=== PATIENT | male | born 1985 | race Caucasian/White ===

== ENCOUNTER → 2016-09-04 | Outpatient (CLI) | payer OTHER ==
[2016-09-04 17:06] LABS: CHLORIDE,CL 106 mmol/L (98-110); SODIUM,NA 141 mmol/L (136-146)
--- NOTE | 2016-09-06 12:11 | CR ---
EXAM DATE: 09/04/16 PATIENT'S AGE: 30 Patient: VONNIE GREER Facility: [place], [place] Site . Site : 1985 Study: XRay Sinus [id number] 5:05:16 PM Ordering Physician: Sera Russ Final Report: HISTORY: Chronic sinusitis. Findings: Four views of the paranasal sinuses demonstrate the left frontal sinus is hypoplastic. The right frontal, ethmoid, maxillary and sphenoid sinuses are well aerated. No air-fluid levels are identified. Impression: No evidence of acute sinusitis. Dictated by Susan Harding MD @ Sep 05 2016 8:41PM (Electronic Signature) Report Signed by Proxy and Original Signed Document filed in the Medical Record. MTDD
== END ==
LOC: MW.CHIM 16:22
PROVIDERS: ATTEND Internal Medicine
DX: J32.9 Chronic sinusitis, unspecified (principal)
CPT/HCPCS: 36415; 70220; 70220-26; 80048; 85025

== ENCOUNTER 2016-10-23 23:16 | Observation (INO) | payer OTHER ==
[2016-10-23] MEDS ORDERED: Sodium Chloride 0.9% 1,000 ML IV SCH (23:45)
[2016-10-23] MEDS ORDERED: Ondansetron 4 MG/2 ML SDV IVPUSH ONE (23:48)
[2016-10-24 00:36] LABS: CHLORIDE,CL 105 mmol/L (98-110); SODIUM,NA 138 mmol/L (136-146)
[2016-10-24] MEDS ORDERED: Ketorolac 30 MG/ML SDV IVPUSH ONE (00:36)
--- NOTE | 2016-10-24 00:37 | EDM.PDOC ---
ED HPI GENERAL MEDICAL PROBLEM - General Stated Complaint: PT HAS FOOD POISON Time Seen by Provider: 10/23/16 23:30 Source of Information: Reports: Patient History Limitations: Reports: No Limitations - History of Present Illness INITIAL COMMENTS - FREE TEXT/NARRATIVE: HISTORY AND PHYSICAL: History of present illness: [30-year-old male with no significant past medical history now complaining of right lower quadrant abdominal pain with nausea and decreased appetite today. Patient does have a history of frequent nausea vomiting and crampy abdominal pain which spontaneously resolves and has never been diagnosed as any intra- abdominal pathology he denies fevers chills sweats or shaking chills and states that it does not really hurt when he moves. He does have a decreased appetite today.] Review of systems: As per history of present illness and below otherwise all systems reviewed and negative. Past medical history: As per history of present illness and as reviewed below otherwise noncontributory. Surgical history: As per history of present illness and as reviewed below otherwise noncontributory. Social history: No reported history of drug or alcohol abuse. Family history: As per history of present illness and as reviewed below otherwise noncontributory. Physical exam: HEENT: Atraumatic, normocephalic, pupils reactive, negative for conjunctival pallor or scleral icterus, mucous membranes moist, throat clear, neck supple, nontender, trachea midline. Lungs: Clear to auscultation, breath sounds equal bilaterally, chest nontender. Heart: S1S2, regular, negative for clicks, rubs, or JVD. Abdomen: Soft, nondistended, mild right lower quadrant abdominal tenderness no guarding or rebound positive bowel sounds. Negative for masses or hepatosplenomegaly. Negative for costovertebral tenderness. Pelvis: Stable nontender. Genitourinary: Deferred. Rectal: Deferred. Extremities: Atraumatic, negative for cords or calf pain. Neurovascular unremarkable. Neuro: Awake, alert, oriented. Cranial nerves II through XII unremarkable. Cerebellum unremarkable. Motor and sensory unremarkable throughout. Exam nonfocal. Diagnostics: [CT abdomen and pelvis as well as full labs pending] Therapeutics: [Zofran and Toradol given IV] Impression: [[place] pain] Plan: [Signs and symptoms consistent with possible early appendicitis however patient does have a history of recurrent abdominal pain with nausea and vomiting. He does not have peritoneal signs and is quite well-appearing with no fever. Full workup pending including labs and CT will follow clinically.] Labs with white blood cell count of 19. CT shows acute appendicitis with 14 mm appendix. No abscess or free air. No radiographic evidence of perforation. 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 Dr. Pate's where the history and findings and agrees observation admission to his service. He agrees with Mefoxin/IV fluids. Patient will be kept nothing by mouth. Vital signs stable Definitive disposition and diagnosis as appropriate pending reevaluation and review of above. abdomen Pain Score (Numeric/FACES): 6 - Related Data Allergies Allergy/AdvReac Type Severity Reaction Status Date / Time No Known Allergies Allergy Verified 10/23/16 23:26 Home Meds: Home Meds ALPRAZolam [Xanax] 1 tab PO BID 10/23/16 [History] Past Medical History HEENT History: Reports: None Cardiovascular History: Reports: None Respiratory History: Reports: None Gastrointestinal History: Reports: None Genitourinary History: Reports: None Musculoskeletal History: Reports: None Neurological History: Reports: None Psychiatric History: Reports: Anxiety, Depression Endocrine/Metabolic History: Reports: None Hematologic History: Reports: None Oncologic (Cancer) History: Reports: None Dermatologic History: Reports: None - Infectious Disease History Infectious Disease History: Reports: Chicken Pox - Past Surgical History HEENT Surgical History: Reports: Naso-Sinus Surgery Social & Family History - Family History Family Medical History: Noncontributory - Tobacco Use Smoking Status *Q: Never Smoker Second Hand Smoke Exposure: No - Caffeine Use Caffeine Use: Reports: Soda - Recreational Drug Use Recreational Drug Use: No ED ROS GENERAL - Review of Systems Review Of Systems: See Below (History of present illness) ED EXAM, GENERAL - Physical Exam Exam: See Below (History of present illness) Course - Vital Signs Last Recorded V/S: Last Vital Signs Temp 36.5 C 10/24/16 00:30 Pulse 78 10/24/16 00:30 Resp 16 10/24/16 00:30 BP 133/83 10/24/16 00:30 Pulse Ox 98 10/24/16 00:30 - Orders/Labs/Meds Orders: Active Orders 24 hr Category Date Time Status Admission Status [Patient Status] [ADT] Stat ADT 10/24/16 01:36 Ordered Nothing Per Oral Diet [DIET] Diet 10/24/16 Breakfast Ordered Abdomen Pelvis w Cont [CT] Stat Exams 10/23/16 23:50 Ordered Sodium Chloride 0.9% [Normal Saline] 1,000 ml Med 10/23/16 23:45 Active IV ASDIRECTED Sodium Chloride 0.9% [Normal Saline] 1,000 ml Med 10/24/16 01:39 Ordered IV STAT cefOXitin [Mefoxin] 1 gm Med 10/24/16 01:35 Ordered Sodium Chloride 0.9% [Normal Saline] 50 ml IV ONETIME Medication Orders Sodium Chloride (Normal Saline) 1,000 mls @ 999 mls/hr IV ASDIRECTED JACQUELIN Last Admin: 10/23/16 23:55 Dose: 999 mls/hr Cefoxitin Sodium 1 gm/ Sodium (Chloride) 50 mls @ 100 mls/hr IV ONETIME ONE Stop: 10/24/16 02:04 Sodium Chloride (Normal Saline) 1,000 mls @ 999 mls/hr IV STAT ONE Stop: 10/24/16 02:39 Labs: Laboratory Tests 10/23/16 10/23/16 Range/Units 23:25 23:25 WBC 19.36 H (4.0-11.0) K/uL RBC 5.14 (4.50-5.90) M/uL Hgb 15.5 (13.0-17.0) g/dL Hct 43.9 (38.0-50.0) % MCV 85.4 (80.0-98.0) fL MCH 30.2 (27.0-32.0) pg MCHC 35.3 (31.0-37.0) g/dL RDW Std Deviation 41.4 (28.0-62.0) fl RDW Coeff of Gisele 13 (11.0-15.0) % Plt Count 312 (150-400) K/uL MPV 9.70 (7.40-12.00) fL Neut % (Auto) 88.8 H (48.0-80.0) % Lymph % (Auto) 7.5 L (16.0-40.0) % [place] % (Auto) 3.4 (0.0-15.0) % Eos % (Auto) 0.1 (0.0-7.0) % Baso % (Auto) 0.2 (0.0-1.5) % Neut # (Auto) 17.2 H (1.4-5.7) K/uL Lymph # (Auto) 1.5 (0.6-2.4) K/uL [place] # (Auto) 0.7 (0.0-0.8) K/uL Eos # (Auto) 0.0 (0.0-0.7) K/uL Baso # (Auto) 0.0 (0.0-0.1) K/uL Nucleated RBC % 0.0 /100WBC Nucleated RBCs # 0 K/uL Sodium 138 (136-146) mmol/L Potassium 4.0 (3.5-5.1) mmol/L Chloride 105 (98-110) mmol/L Carbon Dioxide 21 (21-31) mmol/L BUN 15 (6.0-23.0) mg/dL Creatinine 0.8 (0.6-1.5) mg/dL Est Cr Clr Drug Dosing 162.75 mL/min Estimated GFR (MDRD) > 60.0 ml/min Glucose 126 H (60-110) mg/dL Calcium 9.4 (8.8-10.8) mg/dL Total Bilirubin 1.7 H (0.1-1.5) mg/dL AST 17 (5-40) IU/L ALT 20 (8-54) IU/L Alkaline Phosphatase 101 (40-150) Total Protein 7.7 (6.0-8.0) g/dL Albumin 4.5 (3.5-5.0) g/dL Globulin 3.2 (2.0-3.5) g/dL Albumin/Globulin Ratio 1.4 (1.3-2.8) Lipase 14 (7-80) U/L Meds: Medications Generic Name Dose Route Start Last Admin Trade Name Freq PRN Reason Stop Dose Admin Sodium Chloride 1,000 mls @ 999 mls/hr 10/23/16 23:45 10/23/16 23:55 Normal Saline IV 999 mls/hr ASDIRECTED JACQUELIN Administration Cefoxitin Sodium 1 gm/ Sodium 50 mls @ 100 mls/hr 10/24/16 01:35 Chloride IV 10/24/16 02:04 ONETIME ONE Sodium Chloride 1,000 mls @ 999 mls/hr 10/24/16 01:39 Normal Saline IV 10/24/16 02:39 STAT ONE Discontinued Medications Generic Name Dose Route Start Last Admin Trade Name Christoph PRN Reason Stop Dose Admin Iopamidol 100 ml 10/24/16 01:08 10/24/16 01:09 Isovue Multipack-370 (76%) IVPUSH 10/24/16 01:09 100 ml ONETIME STA Administration Ketorolac Tromethamine 30 mg 10/24/16 00:36 10/24/16 00:40 Toradol IVPUSH 10/24/16 00:37 30 mg ONETIME ONE Administration Ondansetron HCl 4 mg 10/23/16 23:48 10/23/16 23:55 Zofran IVPUSH 10/23/16 23:49 4 mg ONETIME ONE Administration Ondansetron HCl 4 mg 10/24/16 00:43 10/24/16 01:09 Zofran IVPUSH 10/24/16 00:44 4 mg ONETIME ONE Administration Departure - Departure Time of Disposition: 01:35 Disposition: Refer to Observation Condition: fair Clinical Impression: Acute appendicitis, Abdominal pain, Leukocytosis - Discharge Information - My Orders Last 24 Hours: My Active Orders 10/23/16 23:45 Sodium Chloride 0.9% [Normal Saline] 1,000 ml IV ASDIRECTED 10/23/16 23:50 Abdomen Pelvis w Cont [CT] Stat 10/24/16 01:35 cefOXitin [Mefoxin] 1 gm Sodium Chloride 0.9% [Normal Saline] 50 ml IV ONETIME 10/24/16 01:36 Admission Status [Patient Status] [ADT] Stat 10/24/16 01:39 Sodium Chloride 0.9% [Normal Saline] 1,000 ml IV STAT 10/24/16 Breakfast Nothing Per Oral Diet [DIET] - Assessment/Plan Last 24 Hours: My Active Orders 10/23/16 23:45 Sodium Chloride 0.9% [Normal Saline] 1,000 ml IV ASDIRECTED 10/23/16 23:50 Abdomen Pelvis w Cont [CT] Stat 10/24/16 01:35 cefOXitin [Mefoxin] 1 gm Sodium Chloride 0.9% [Normal Saline] 50 ml IV ONETIME 10/24/16 01:36 Admission Status [Patient Status] [ADT] Stat 10/24/16 01:39 Sodium Chloride 0.9% [Normal Saline] 1,000 ml IV STAT 10/24/16 Breakfast Nothing Per Oral Diet [DIET]
[2016-10-24] MEDS ORDERED: Ondansetron 4 MG/2 ML SDV IVPUSH ONE (00:43)
[2016-10-24] MEDS ORDERED: Iopamidol 755 MG/ML 500 ML Multipack Bottle IVPUSH STA (01:08)
[2016-10-24] MEDS ORDERED: Sodium Chloride 0.9% 1,000 ML IV ONE (01:39)
[2016-10-24] MEDS ORDERED: HYDROmorphone 2 MG/ML Syringe IVPUSH PRN (01:40)
[2016-10-24] MEDS ORDERED: HYDROmorphone 1 MG/ML Syringe IVPUSH ONE (01:52)
[2016-10-24] MEDS ORDERED: HYDROmorphone 1 MG/ML Syringe ONE (01:58)
[2016-10-24] MEDS ORDERED: cefOXitin 1 GM in Premix Bag 1 BAG IV ONE (06:25)
[2016-10-24] MEDS ORDERED: Morphine 2 MG/ML Syringe IVPUSH PRN (06:26)
[2016-10-24] MEDS ORDERED: Lactated Ringers 1,000 ML IV SCH (06:30)
--- NOTE | 2016-10-24 08:08 | PCM.HP ---
H&P History of Present Illness - General Date of Service: 10/24/16 Source of Information: Patient History Limitations: Reports: No Limitations - History of Present Illness Initial Comments - Free Text/Narative: Patient is a 30-year-old gentleman, who presented to the emergency room early this morning, complaining of right lower quadrant pain. He says this has been going on intermittently for the last year. He has had at least one prior emergency room visit for this. On his most recent visit he was found have an elevated white count. A CT scan shows acute appendicitis without perforation and he was thus admitted. Onset of Symptoms: Reports: Gradual Duration of Symptoms: Reports: Day(s):, Getting Worse, Recurring Location: Reports: Abdomen Quality: Reports: Ache, Pressure Severity: Moderate Improves with: Reports: Rest Worsens with: Reports: Movement Context: Reports: Sick Contact Associated Symptoms: Reports: Nausea/Vomiting abdomen Pain Score (Numeric/FACES): 3 - Related Data Allergies/Adverse Reactions: Allergies Allergy/AdvReac Type Severity Reaction Status Date / Time No Known Allergies Allergy Verified 10/23/16 23:26 Home Medications: Home Meds ALPRAZolam [Xanax] 0.25 mg PO BID 10/23/16 [History] Past Medical History HEENT History: Reports: None Cardiovascular History: Reports: None Respiratory History: Reports: None Gastrointestinal History: Reports: None Genitourinary History: Reports: None Musculoskeletal History: Reports: None Neurological History: Reports: None Psychiatric History: Reports: Anxiety, Depression Endocrine/Metabolic History: Reports: None Hematologic History: Reports: None Oncologic (Cancer) History: Reports: None Dermatologic History: Reports: None - Infectious Disease History Infectious Disease History: Reports: Chicken Pox - Past Surgical History HEENT Surgical History: Reports: Naso-Sinus Surgery, Tonsillectomy Social & Family History - Family History Family Medical History: Noncontributory - Tobacco Use Smoking Status *Q: Never Smoker Second Hand Smoke Exposure: No - Caffeine Use Caffeine Use: Reports: Coffee - Recreational Drug Use Recreational Drug Use: No H&P Review of Systems - Review of Systems: Review Of Systems: See Below General: Denies: Fever, Chills HEENT: Reports: No Symptoms Pulmonary: Denies: Shortness of Breath, Wheezing Cardiovascular: Denies: Chest Pain, Palpitations Gastrointestinal: Reports: Abdominal Pain (RLQ), Anorexia, Nausea, Vomiting Genitourinary: Denies: Dysuria, Frequency, Burning, Pain, Urgency Musculoskeletal: Reports: No Symptoms Skin: Reports: No Symptoms Psychiatric: Reports: No Symptoms Neurological: Reports: No Symptoms Hematologic/Lymphatic: Reports: No Symptoms Immunologic: Reports: No Symptoms Exam - Exam Exam: See Below - Vital Signs Vital Signs: Last Vital Signs Temp 99 F 10/24/16 06:00 Pulse 88 10/24/16 02:30 Resp 20 10/24/16 02:30 BP 142/75 H 10/24/16 02:30 Pulse Ox 100 10/24/16 02:30 Weight: 222 lb 7.143 oz - Exam General: Alert, Oriented, Cooperative, Mild Distress HEENT: Conjunctiva Clear, EACs Clear, EOMI, Pupils Equal, Pupils Reactive. No: Scleral Icterus Neck: Supple Lungs: Clear to Auscultation, Normal Respiratory Effort Cardiovascular: Regular Rate, Regular Rhythm, Normal S1, Normal S2 Abdomen: Soft, Rebound, Tenderness (RLQ), Hypoactive Bowel Sounds, McBurney's Sign. No: Distention, Guarding, Rigidity (Male) Exam: No Hernia, Normal Inspection Rectal (Males) Exam: Deferred Back Exam: Normal Inspection, Full Range of Motion Extremities: Normal Inspection, Normal Pulses Skin: Warm, Dry, Intact Neurological: Cranial Nerves Intact Neuro Extensive - Mental Status: Alert, Oriented x3, Normal Mood/Affect Psychiatric: Alert, Normal Affect, Normal Mood - Patient Data Result Diagrams: 10/23/16 23:25 10/23/16 23:25 *Q Meaningful Use (ADM) - VTE *Q VTE Criteria *Q: - Stroke *Q Stroke Criteria *Q: - AMI *Q AMI Criteria *Q: - Problem List (1) Acute appendicitis SNOMED Code(s): 56553853 ICD Code: K35.80 - UNSPECIFIED ACUTE APPENDICITIS Status: Acute Priority : High Current Visit: Yes Qualifiers: Acute appendicitis type: with localized peritonitis Qualified Code(s): K35.3 - Acute appendicitis with localized peritonitis Problem List Initiated/Reviewed/Updated: Yes Orders Last 24hrs: Active Orders 24 hr Category Date Time Status Lactated Ringers [Ringers, Lactated] 1,000 ml Med 10/24/16 06:30 Active IV ASDIRECTED Morphine Med 10/24/16 06:26 Active 1 - 2 mg IVPUSH Q1H PRN Medication Orders Sodium Chloride (Normal Saline) 1,000 mls @ 999 mls/hr IV ASDIRECTED [facility] Last Admin: 10/23/16 23:55 Dose: 999 mls/hr Lactated Ringer's (Ringers, Lactated) 1,000 mls @ 125 mls/hr IV ASDIRECTED [facility] Last Admin: 10/24/16 06:32 Dose: 125 mls/hr Morphine Sulfate (Morphine) 1 - 2 mg IVPUSH Q1H PRN PRN Reason: Pain Assessment/Plan Comment:: Laparoscopic appendectomy, possible open appendectomy. Both operative procedures, along with the risks, including, but not limited to, bleeding, infection, pneumonia, deep venous thrombosis, pulmonary emboli, myocardial infarction, and adjacent organ injury have been reviewed with the patient who voices understanding, offers no questions and agrees to proceed.
--- NOTE | 2016-10-24 08:51 | PCM.PREANE ---
Preanesthetic Assessment - Procedure Proposed Procedure: Laparoscopic appendectomy - Anesthesia/Transfusion/Family Hx Anesthesia History: Prior Anesthesia Without Reaction Type of Anesthesia Reaction: Unknown Transfusion History: No Prior Transfusion(s) Intubation History: Unknown - Review of Systems General: Other (abdominal pain due to appendix ) Pulmonary: No Symptoms Cardiovascular: No Symptoms Gastrointestinal: No symptoms Neurological: No Symptoms Other: Reports: Depression, Anxiety - Physical Assessment NPO Status Date: 10/23/16 NPO Status Time: 23:55 O2 Sat by Pulse Oximetry: 100 Respiratory Rate: 18 Vital Signs: Last Vital Signs Temp 99.2 F 10/24/16 08:08 Pulse 82 10/24/16 08:08 Resp 18 10/24/16 08:08 BP 136/71 10/24/16 08:08 Pulse Ox 100 10/24/16 08:08 Height: 6 ft 3.98 in Weight: 222 lb 7.143 oz ASA Class: 2E Mental Status: Alert & Oriented x3 Airway Class: Mallampati = 1 Dentition: Reports: Normal Dentition Thyro-Mental Finger Breadths: 3 Mouth Opening Finger Breadths: 3 ROM/Head Extension: Full Lungs: Clear to auscultation, Normal respiratory effort Cardiovascular: Regular Rate, Regular Rhythm, No Murmurs - Lab Values: Laboratory Last Values WBC 19.36 K/uL (4.0-11.0) H 10/23/16 23:25 RBC 5.14 M/uL (4.50-5.90) 10/23/16 23:25 Hgb 15.5 g/dL (13.0-17.0) 10/23/16 23:25 Hct 43.9 % (38.0-50.0) 10/23/16 23:25 MCV 85.4 fL (80.0-98.0) 10/23/16 23:25 MCH 30.2 pg (27.0-32.0) 10/23/16 23:25 MCHC 35.3 g/dL (31.0-37.0) 10/23/16 23:25 RDW Std Deviation 41.4 fl (28.0-62.0) 10/23/16 23:25 RDW Coeff of Gisele 13 % (11.0-15.0) 10/23/16 23:25 Plt Count 312 K/uL (150-400) 10/23/16 23:25 MPV 9.70 fL (7.40-12.00) 10/23/16 23:25 Neut % (Auto) 88.8 % (48.0-80.0) H 10/23/16 23:25 Lymph % (Auto) 7.5 % (16.0-40.0) L 10/23/16 23:25 [place] % (Auto) 3.4 % (0.0-15.0) 10/23/16 23:25 Eos % (Auto) 0.1 % (0.0-7.0) 10/23/16 23:25 Baso % (Auto) 0.2 % (0.0-1.5) 10/23/16: Neut # (Auto) 17.2 K/uL (1.4-5.7) H 10/23/16 23:25 Lymph # (Auto) 1.5 K/uL (0.6-2.4) 10/23/16:25 [place] # (Auto) 0.7 K/uL (0.0-0.8) 10/23/16 23:25 Eos # (Auto) 0.0 K/uL (0.0-0.7) 10/23/16 23:25 Baso # (Auto) 0.0 K/uL (0.0-0.1) 10/23/16: Nucleated RBC % 0.0 /100WBC 10/23/16:25 Nucleated RBCs # 0 K/uL 10/23/16 23:25 Sodium 138 mmol/L (136-146) 10/23/16 23:25 Potassium 4.0 mmol/L (3.5-5.1) 10/23/16 23:25 Chloride 105 mmol/L (98-110) 10/23/16 23:25 Carbon Dioxide 21 mmol/L (21-31) 10/23/16:25 BUN 15 mg/dL (6.0-23.0) 10/23/16:25 Creatinine 0.8 mg/dL (0.6-1.5) 10/23/16 23:25 Est Cr Clr Drug Dosing 162.75 mL/min 10/23/16 23:25 Estimated GFR (MDRD) > 60.0 ml/min 10/23/16 23:25 Glucose 126 mg/dL (60-110) H 10/23/16 23:25 Calcium 9.4 mg/dL (8.8-10.8) 10/23/16 23:25 Total Bilirubin 1.7 mg/dL (0.1-1.5) H 10/23/16 23:25 AST 17 IU/L (5-40) 10/23/16 23:25 ALT 20 IU/L (8-54) 10/23/16 23:25 Alkaline Phosphatase 101 (40-150) 10/23/16 23:25 Total Protein 7.7 g/dL (6.0-8.0) 10/23/16 23:25 Albumin 4.5 g/dL (3.5-5.0) 10/23/16 23:25 Globulin 3.2 g/dL (2.0-3.5) 10/23/16 23:25 Albumin/Globulin Ratio 1.4 (1.3-2.8) 10/23/16 23:25 Lipase 14 U/L (7-80) 10/23/16 23:25 - Allergies Allergies/Adverse Reactions: Allergies Allergy/AdvReac Type Severity Reaction Status Date / Time No Known Allergies Allergy Verified 10/23/16 23:26 - Blood Blood Available: No Product(s) Available: None - Anesthesia Plan Pre-Op Medication Ordered: None - Acknowledgements Anesthesia Type Planned: General Anesthesia (OET) Pt an Appropriate Candidate for the Planned Anesthesia: Yes Alternatives and Risks of Anesthesia Discussed w Pt/Guardian: Yes Pt/Guardian Understands and Agrees with Anesthesia Plan: Yes PreAnesthesia Questionnaire HEENT History: Reports: None Cardiovascular History: Reports: None Respiratory History: Reports: None Gastrointestinal History: Reports: None Genitourinary History: Reports: None Musculoskeletal History: Reports: None Neurological History: Reports: None Psychiatric History: Reports: Anxiety, Depression Endocrine/Metabolic History: Reports: None Hematologic History: Reports: None Oncologic (Cancer) History: Reports: None Dermatologic History: Reports: None - Infectious Disease History Infectious Disease History: Reports: Chicken Pox - Past Surgical History HEENT Surgical History: Reports: Naso-Sinus Surgery, Tonsillectomy - SUBSTANCE USE Smoking Status *Q: Never Smoker Second Hand Smoke Exposure: No Recreational Drug Use History: No - HOME MEDS Home Medications: Home Meds ALPRAZolam [Xanax] 0.25 mg PO BID 10/23/16 [History] - CURRENT (IN HOUSE) MEDS Current Meds: Current Medications Sodium Chloride (Normal Saline) 1,000 mls @ 999 mls/hr IV ASDIRECTED [facility] Last Admin: 10/23/16 23:55 Dose: 999 mls/hr Lactated Ringer's (Ringers, Lactated) 1,000 mls @ 125 mls/hr IV ASDIRECTED [facility] Last Admin: 10/24/16 06:32 Dose: 125 mls/hr Morphine Sulfate (Morphine) 1 - 2 mg IVPUSH Q1H PRN PRN Reason: Pain Last Admin: 10/24/16 08:41 Dose: 1 mg Discontinued Medications Hydromorphone HCl (Dilaudid) 0.5 mg IVPUSH ONETIME PRN PRN Reason: Abdominal Pain Hydromorphone HCl (Dilaudid) 0.5 mg IVPUSH ONETIME ONE Stop: 10/24/16 01:53 Last Admin: 10/24/16 02:02 Dose: 0.5 mg Hydromorphone HCl (Dilaudid) Confirm Administered Dose 1 mg .ROUTE .STK-MED ONE Stop: 10/24/16 01:59 Last Admin: 10/24/16 02:03 Dose: Not Given Cefoxitin Sodium 1 gm/ Sodium (Chloride) 50 mls @ 100 mls/hr IV ONETIME ONE Stop: 10/24/16 02:04 Last Admin: 10/24/16 01:46 Dose: Not Given Sodium Chloride (Normal Saline) 1,000 mls @ 999 mls/hr IV STAT ONE Stop: 10/24/16 02:39 Last Admin: 10/24/16 01:45 Dose: 999 mls/hr Cefoxitin Sodium (Mefoxin In Dextrose,Iso-Osm 1 Gm/50 Ml) Confirm Administered Dose 50 mls @ as directed .ROUTE .STK-MED ONE Stop: 10/24/16 01:39 Last Admin: 10/24/16 01:46 Dose: 1 gm Cefoxitin Sodium 1 gm/ Premix 50 mls @ 100 mls/hr IV ONETIME ONE Stop: 10/24/16 06:54 Last Admin: 10/24/16 06:41 Dose: 100 mls/hr Iopamidol (Isovue Multipack-370 (76%)) 100 ml IVPUSH ONETIME STA Stop: 10/24/16 01:09 Last Admin: 10/24/16 01:09 Dose: 100 ml Ketorolac Tromethamine (Toradol) 30 mg IVPUSH ONETIME ONE Stop: 10/24/16 00:37 Last Admin: 10/24/16 00:40 Dose: 30 mg Ondansetron HCl (Zofran) 4 mg IVPUSH ONETIME ONE Stop: 10/23/16 23:49 Last Admin: 10/23/16 23:55 Dose: 4 mg Ondansetron HCl (Zofran) 4 mg IVPUSH ONETIME ONE Stop: 10/24/16 00:44 Last Admin: 10/24/16 01:09 Dose: 4 mg
[2016-10-24] MEDS ORDERED: ceFAZolin 1 GM Vial ONE (10:53)
[2016-10-24] MEDS ORDERED: Bupivacaine 0.5% 10 ML SDV ONE (10:54)
[2016-10-24] MEDS ORDERED: Lidocaine 2% 5 ML SDV ONE (11:13)
[2016-10-24] MEDS ORDERED: Rocuronium 10 MG/ML 10 ML Syringe ONE (11:13)
[2016-10-24] MEDS ORDERED: Ondansetron 4 MG/2 ML SDV ONE (11:13)
[2016-10-24] MEDS ORDERED: Propofol 200 MG/20 ML SDV ONE (11:14)
[2016-10-24] MEDS ORDERED: Midazolam 1 MG/ML 2 ML SDV ONE (11:14)
[2016-10-24] MEDS ORDERED: fentaNYL 250 MCG/5 ML SDV ONE (11:14)
[2016-10-24] MEDS ORDERED: Dexamethasone 4 MG/ML 5 ML MDV ONE (11:16)
[2016-10-24] MEDS ORDERED: HYDROmorphone 2 MG/ML Syringe ONE (12:16)
[2016-10-24] MEDS ORDERED: Neostigmine Methylsulfate 1 MG/ML 5 ML Syringe ONE (12:18)
--- NOTE | 2016-10-24 13:00 | CT ---
EXAM DATE: 10/24/16 PATIENT'S AGE: 30 Patient: VONNIE GREER Facility: [place], [place] Site . Site : 1985 Study: CT Abdomen/Pelvis [id number]/13/2017 1:11:42 AM Ordering Physician: kaley Final Report: INDICATION: Abdominal pain. TECHNIQUE: CT abdomen and pelvis acquired with 100 mL of Isovue 370 IV contrast. COMPARISON: None. FINDINGS: Lower chest: Unremarkable. Liver: Unremarkable. Spleen: Unremarkable. Pancreas: Unremarkable. Gallbladder and bile ducts: Unremarkable. Kidneys: Unremarkable. Adrenal glands: Unremarkable. GI tract: The appendix is fluid-filled and distended to 14 mm. Appendicolith is present. Peripheral wall enhancement and mild periappendiceal fat stranding. Trace pelvic free fluid. No evidence of abscess or perforation. No bowel obstruction. Vascular structures: Unremarkable. Lymph nodes: Unremarkable. Pelvic Organs: Unremarkable. Bones: No acute abnormality. IMPRESSION: Acute appendicitis. No complicating features evident. Discussed with Dr. Nascimento at the time of dictation. Dictated by Wily Richardson MD @ 10/24/2016 1:33:53 AM Dictated by: Wily Richardson MD @ 10/24/2016 01:34:23 (Electronic Signature) Report Signed by Proxy. [facility] HOSPITALMehreen
[2016-10-24] MEDS ORDERED: Morphine 10 MG/ML Syringe IVPUSH PRN (13:05)
[2016-10-24] MEDS ORDERED: Ondansetron 4 MG/2 ML SDV IVPUSH PRN (13:05)
--- NOTE | 2016-10-24 13:08 | PCM.OPNOTE ---
- General Post-Op/Procedure Note Date of Surgery/Procedure: 10/24/16 Operative Procedure(s): Laparoscopic appendectomy Pre Op Diagnosis: Right lower quadrant pain Post-Op Diagnosis: Acute suppurative appendicitis without perforation Anesthesia Technique: General ET tube (ASA IIE) Primary Surgeon: Bay Pate Fluid Replacement, Intraop: 1,400 Output, Urine Amount: 10 Condition: Good Free Text/Narrative:: Intake & Output 10/24/16 10/24/16 10/24/16 03:59 11:59 19:59 Intake Total 1050 1050 Output Total 280 Balance 1050 770 Dictation [id number]
[2016-10-24] MEDS ORDERED: fentaNYL 100 MCG/2 ML SDV IVPUSH PRN (13:10)
[2016-10-24] MEDS ORDERED: cefOXitin 1 GM in Premix Bag 1 BAG IV SCH (13:15)
[2016-10-24] MEDS: Metoclopramide 10 MG/2 ML SDV IV SCH ×2 (14:28→18:34)
--- NOTE | 2016-10-24 14:49 | PCM.POSTAN ---
POST ANESTHESIA ASSESSMENT - MENTAL STATUS Mental Status: alert, oriented - RESPIRATORY Respiratory Status: respiratory rate WNL, airway patent, O2 saturation stable - CARDIOVASCULAR CV Status: pulse rate WNL, blood pressure stable - GASTROINTESTINAL GI Status: no symptoms - POST OP HYDRATION Hydration Status: adequate & stable
--- NOTE | 2016-10-24 14:55 | OR ---
SURGEON: Bay Pate M.D. DATE OF PROCEDURE: 10/24/2016 OPERATION PERFORMED: Laparoscopic appendectomy. ANESTHESIA: General endotracheal. ASA CLASSIFICATION: IIE. PREOPERATIVE DIAGNOSIS: Acute abdomen. POSTOPERATIVE DIAGNOSIS: Acute suppurative appendicitis without perforation. ESTIMATED BLOOD LOSS: 10 mL. INTRAOPERATIVE FLUID REPLACEMENT: 1400 mL of crystalloid. INTRAOPERATIVE URINARY OUTPUT: about 150 mL. DESCRIPTION OF PROCEDURE: The patient was taken to the operating room, placed on the operating table in the supine position. Time-out was called for appropriate identification of the patient and procedure. Thigh-high TEDs and sequential compression boots were placed. Following satisfactory attainment of general endotracheal anesthesia, a Londono catheter was placed in the patient's urinary bladder. The abdomen was prepped with DuraPrep solution. Sterile drapes were applied. The skin just above the umbilicus was infiltrated with 0.5% Marcaine solution. The skin incision was made and deepened through the subcutaneous tissue obtaining hemostasis with the use of electrocautery. The Veress needle was introduced into the peritoneal cavity. The saline drop test was positive. Carbon dioxide pneumoperitoneum was established with the relief set at 13 cm of water. Once we had a satisfactory pneumoperitoneum, the patient was positioned with his head down and rolled to the left. Under camera vision, 12 mm subxiphoid and 5 mm left lower quadrant ports were placed. Each incision had preemptively been infiltrated with a 0.5% Marcaine solution. With the camera and trocars in place, the appendix was grasped. It was acutely inflamed. Mild adhesions were taken down. The mesoappendix was then taken down with a Harmonic scalpel. Once that was accomplished, the appendix was amputated using the Endo-JOSE stapler with a blue load. The appendix was then placed in an Endopouch. The right lower quadrant was inspected for hemostasis. No bleeding was noted. The right lower quadrant was then irrigated with sterile saline solution and all fluid aspirated. With that accomplished, the Endopouch containing appendix and 12 mm suprapubic ports were removed. Under camera vision, the 5 mm left lower quadrant port was removed and finally the supraumbilical camera and port were removed. The wounds were inspected for hemostasis. Small bleeding sites were electrocoagulated. The incisions were then closed in the following fashion. The suprapubic and supraumbilical incisions were closed in 2 layers approximating the subcutaneous tissue with 3-0 Polysorb and the skin with subcuticular 4-0 Monocryl. The left lower quadrant port was closed with subcuticular 4-0 Monocryl. All incisions were Steri-Stripped and dressed with sterile Tegaderm pads. Prior to emergence from anesthesia, the Londono catheter was removed. Following emergence from anesthesia and extubation, the patient was taken to recovery room in stable condition. ASHLIE GUNTER /[id number]
--- NOTE | 2016-10-24 15:21 | PCM48HPAN ---
Post Anesthesia Note - EVALUATION WITHIN 48HRS OF ANESTHETIC Vital Signs in Normal Range: Yes Patient Participated in Evaluation: Yes Respiratory Function Stable: Yes Airway Patent: Yes Cardiovascular Function Stable: Yes Hydration Status Stable: Yes Pain Control Satisfactory: Yes Nausea and Vomiting Control Satisfactory: Yes Mental Status Recovered: Yes
[2016-10-24] MEDS: Lactated Ringers 1,000 ML IV SCH (18:34)
[2016-10-24] MEDS: Acetaminophen/HYDROcodone 325-5 MG Tab PO PRN (19:59)
[2016-10-24] MEDS: cefOXitin 1 GM in Premix Bag 1 BAG IV SCH (20:01)
[2016-10-25] MEDS: Acetaminophen/HYDROcodone 325-5 MG Tab PO PRN (00:46)
[2016-10-25] MEDS: Metoclopramide 10 MG/2 ML SDV IV SCH ×2 (00:48→07:30)
[2016-10-25] MEDS: Lactated Ringers 1,000 ML IV SCH (03:21)
[2016-10-25] MEDS: cefOXitin 1 GM in Premix Bag 1 BAG IV SCH ×2 (03:24→11:12)
--- NOTE | 2016-10-25 08:23 | PCM.SURGPN ---
- General Info Date of Service: 10/25/16 POD#: 1 Post-Op Diagnosis: Acute non-ruptured appendicitis Functional Status: Reports: pain controlled, tolerating diet, ambulating, urinating. Denies: new symptoms - Review of Systems General: Denies: Fever, Weakness, Fatigue, Chills HEENT: Reports: no symptoms Pulmonary: Reports: no symptoms Cardiovascular: Reports: No Symptoms Gastrointestinal: Denies: Abdominal pain, Constipation, Decreased appetite, Difficulty swallowing, Nausea, Vomiting Genitourinary: Reports: no symptoms Musculoskeletal: Reports: no symptoms Skin: Reports: no symptoms Neurological: Reports: No Symptoms Psychiatric: Reports: no symptoms - Patient Data Vitals - most recent: Last Vital Signs Temp 98.9 F 10/25/16 04:00 Pulse 72 10/25/16 04:00 Resp 20 10/25/16 04:00 BP 119/67 10/25/16 04:00 Pulse Ox 96 10/25/16 04:00 Weight - most recent: 222 lb 7.143 oz I&O - last 24 hours: Intake & Output 10/24/16 10/25/16 10/25/16 19:59 03:59 11:59 Intake Total 3677 1249 450 Output Total 160 1275 Balance 3517 1249 -825 Med Orders - Current: Current Medications Hydrocodone Bitart/Acetaminophen ([place] 325-5 Mg) 1 - 2 tab PO Q4H PRN PRN Reason: Pain (moderate 4-6) Last Admin: 10/25/16 00:46 Dose: 1 tab Fentanyl (Sublimaze) 50 mcg IVPUSH SEECOMMENT PRN PRN Reason: Pain (moderate 4-6) Sodium Chloride (Normal Saline) 1,000 mls @ 999 mls/hr IV ASDIRECTED [facility] Last Admin: 10/23/16 23:55 Dose: 999 mls/hr Lactated Ringer's (Ringers, Lactated) 1,000 mls @ 125 mls/hr IV ASDIRECTED [facility] Last Admin: 10/24/16 06:32 Dose: 125 mls/hr Lactated Ringer's (Ringers, Lactated) 1,000 mls @ 125 mls/hr IV ASDIRECTED [facility] Last Admin: 10/25/16 03:21 Dose: 125 mls/hr Cefoxitin Sodium 1 gm/ Premix 50 mls @ 100 mls/hr IV Q8H [facility] Stop: 10/25/16 12:29 Last Admin: 10/25/16 03:24 Dose: 100 mls/hr Metoclopramide HCl (Reglan) 10 mg IV Q6H [facility] Last Admin: 10/25/16 07:30 Dose: 10 mg Morphine Sulfate (Morphine) 1 - 2 mg IVPUSH Q1H PRN PRN Reason: Pain Last Admin: 10/24/16 08:41 Dose: 1 mg Morphine Sulfate (Morphine) 0 mg IVPUSH Q1H PRN PRN Reason: Pain (severe 7-10) Ondansetron HCl (Zofran) 4 mg IVPUSH Q6H PRN PRN Reason: Nausea/Vomiting Last Admin: 10/24/16 19:55 Dose: 4 mg Discontinued Medications Bupivacaine HCl (Sensorcaine-Mpf 0.5%) Confirm Administered Dose 10 ml .ROUTE .STK-MED ONE Stop: 10/24/16 10:55 Cefazolin Sodium (Ancef) Confirm Administered Dose 1 gm .ROUTE .STK-MED ONE Stop: 10/24/16 10:54 Dexamethasone (Dexamethasone) Confirm Administered Dose 20 mg .ROUTE .STK-MED ONE Stop: 10/24/16 11:17 Fentanyl (Sublimaze) Confirm Administered Dose 250 mcg .ROUTE .STK-MED ONE Stop: 10/24/16 11:15 Glycopyrrolate () Confirm Administered Dose 1 mg .ROUTE .STK-MED ONE Stop: 10/24/16 12:19 Hydromorphone HCl (Dilaudid) 0.5 mg IVPUSH ONETIME PRN PRN Reason: Abdominal Pain Hydromorphone HCl (Dilaudid) 0.5 mg IVPUSH ONETIME ONE Stop: 10/24/16 01:53 Last Admin: 10/24/16 02:02 Dose: 0.5 mg Hydromorphone HCl (Dilaudid) Confirm Administered Dose 1 mg .ROUTE .STK-MED ONE Stop: 10/24/16 01:59 Last Admin: 10/24/16 02:03 Dose: Not Given Hydromorphone HCl (Dilaudid) Confirm Administered Dose 2 mg .ROUTE .STK-MED ONE Stop: 10/24/16 12:17 Cefoxitin Sodium 1 gm/ Sodium (Chloride) 50 mls @ 100 mls/hr IV ONETIME ONE Stop: 10/24/16 02:04 Last Admin: 10/24/16 01:46 Dose: Not Given Sodium Chloride (Normal Saline) 1,000 mls @ 999 mls/hr IV STAT ONE Stop: 10/24/16 02:39 Last Admin: 10/24/16 01:45 Dose: 999 mls/hr Cefoxitin Sodium (Mefoxin In Dextrose,Iso-Osm 1 Gm/50 Ml) Confirm Administered Dose 50 mls @ as directed .ROUTE .STK-MED ONE Stop: 10/24/16 01:39 Last Admin: 10/24/16 01:46 Dose: 1 gm Cefoxitin Sodium 1 gm/ Premix 50 mls @ 100 mls/hr IV ONETIME ONE Stop: 10/24/16 06:54 Last Admin: 10/24/16 06:41 Dose: 100 mls/hr Cefoxitin Sodium (Mefoxin In Dextrose,Iso-Osm 1 Gm/50 Ml) Confirm Administered Dose 50 mls @ as directed .ROUTE .STK-MED ONE Stop: 10/24/16 12:00 Cefoxitin Sodium 1 gm/ Premix 50 mls @ 100 mls/hr IV Q8H [facility] Stop: 10/25/16 05:44 Last Admin: 10/24/16 14:28 Dose: Not Given Iopamidol (Isovue Multipack-370 (76%)) 100 ml IVPUSH ONETIME STA Stop: 10/24/16 01:09 Last Admin: 10/24/16 01:09 Dose: 100 ml Ketorolac Tromethamine (Toradol) 30 mg IVPUSH ONETIME ONE Stop: 10/24/16 00:37 Last Admin: 10/24/16 00:40 Dose: 30 mg Lidocaine (Xylocaine-Mpf 2%) Confirm Administered Dose 5 ml .ROUTE .STK-MED ONE Stop: 10/24/16 11:14 Midazolam HCl (Versed 1 Mg/Ml) Confirm Administered Dose 2 mg .ROUTE .STK-MED ONE Stop: 10/24/16 11:15 Neostigmine Methylsulfate (Neostigmine) Confirm Administered Dose 5 mg .ROUTE .STK-MED ONE Stop: 10/24/16 12:19 Ondansetron HCl (Zofran) 4 mg IVPUSH ONETIME ONE Stop: 10/23/16 23:49 Last Admin: 10/23/16 23:55 Dose: 4 mg Ondansetron HCl (Zofran) 4 mg IVPUSH ONETIME ONE Stop: 10/24/16 00:44 Last Admin: 10/24/16 01:09 Dose: 4 mg Ondansetron HCl (Zofran) Confirm Administered Dose 4 mg .ROUTE .STK-MED ONE Stop: 10/24/16 11:14 Propofol (Diprivan 20 Ml) Confirm Administered Dose 200 mg .ROUTE .STK-MED ONE Stop: 10/24/16 11:15 Rocuronium [place] (Zemuron) Confirm Administered Dose 100 mg .ROUTE .STK-MED ONE Stop: 10/24/16 11:14 - Exam Wound/Incisions: dressing dry and intact, no drainage General: alert, oriented, cooperative, no acute distress HEENT: Pupils equal, Pupils reactive, EOMI Neck: supple Lungs: Clear to auscultation, Normal respiratory effort Cardiovascular: Regular Rate, Regular Rhythm, No Murmurs Abdomen: bowel sounds present, soft, no tenderness, no distension Extremities: no edema, normal pulses Skin: warm, dry, intact Psy/Mental Status: normal affect, normal mood - Problem List & Annotations (1) Acute appendicitis SNOMED Code(s): 08463590 Code(s): K35.80 - UNSPECIFIED ACUTE APPENDICITIS Status: Acute Priority: High Current Visit: Yes Qualifiers: Acute appendicitis type: with localized peritonitis Qualified Code(s): K35.3 - Acute appendicitis with localized peritonitis - Problem List Review Problem List Initiated/Reviewed/Updated: Yes - My Orders Last 24 Hours: Active Orders 24 hr Category Date Time Status Antiembolic Devices [RC] PER UNIT ROUTINE Care 10/24/16 08:09 Active Antiembolic Devices [RC] PER UNIT ROUTINE Care 10/24/16 13:06 Active Communication Order [RC] DAILY Care 10/24/16 15:36 Active Londono Catheter Insertion [Insert Urinary Catheter] [OM. Care 10/24/16 08:15 Ordered PC] Q24H Oxygen Therapy [RC] PRN Care 10/24/16 08:08 Active Oxygen Therapy [RC] PRN Care 10/24/16 13:05 Active Pulse Oximetry [RC] INTERMITTENT Care 10/24/16 13:05 Active RT Incentive Spirometry [RC] Q1HWA Care 10/24/16 13:05 Active Skin Preparation [RC] .PREOP Care 10/24/16 08:09 Active Up ad Carola [RC] PER UNIT ROUTINE Care 10/24/16 13:05 Active Urinary Catheter Assessment [RC] ASDIRECTED Care 10/24/16 08:09 Active Vital Signs [RC] PER UNIT ROUTINE Care 10/24/16 08:08 Active Vital Signs [RC] PER UNIT ROUTINE Care 10/24/16 13:05 Active Regular Diet [DIET] Diet 10/24/16 Dinner Active Acetaminophen/HYDROcodone [[place] 325-5 MG] Med 10/24/16 13:05 Active 1 - 2 tab PO Q4H PRN Lactated Ringers [Ringers, Lactated] 1,000 ml Med 10/24/16 13:15 Active IV ASDIRECTED Metoclopramide [Reglan] Med 10/24/16 13:15 Active 10 mg IV Q6H Morphine Med 10/24/16 13:05 Active See Dose Instructions IVPUSH Q1H PRN Ondansetron [Zofran] Med 10/24/16 13:05 Active 4 mg IVPUSH Q6H PRN cefOXitin [Mefoxin in Dextrose,Iso-Osm 1 GM/50 ML] 1 gm Med 10/24/16 20:00 Active Premix Bag 1 bag IV Q8H fentaNYL [Sublimaze] Med 10/24/16 13:10 Active 50 mcg IVPUSH SEECOMMENT PRN Antiembolic Hose [OM.PC] PER UNIT ROUTINE Oth 10/25/16 06:00 Ordered Antiembolic Hose [OM.PC] PER UNIT ROUTINE Oth 10/25/16 06:00 Ordered Sequential Compression Device [OM.PC] Routine Oth 10/24/16 08:09 Ordered Sequential Compression Device [OM.PC] Routine Oth 10/24/16 13:05 Ordered Resuscitation Status Routine Resus Stat 10/24/16 08:08 Ordered Medication Orders Hydrocodone Bitart/Acetaminophen ([place] 325-5 Mg) 1 - 2 tab PO Q4H PRN PRN Reason: Pain (moderate 4-6) Last Admin: 10/25/16 00:46 Dose: 1 tab Admin: 10/24/16 19:59 Dose: 1 tab Fentanyl (Sublimaze) 50 mcg IVPUSH SEECOMMENT PRN PRN Reason: Pain (moderate 4-6) Sodium Chloride (Normal Saline) 1,000 mls @ 999 mls/hr IV ASDIRECTED [facility] Last Admin: 10/23/16 23:55 Dose: 999 mls/hr Lactated Ringer's (Ringers, Lactated) 1,000 mls @ 125 mls/hr IV ASDIRECTED [facility] Last Admin: 10/24/16 06:32 Dose: 125 mls/hr Lactated Ringer's (Ringers, Lactated) 1,000 mls @ 125 mls/hr IV ASDIRECTED [facility] Last Admin: 10/25/16 03:21 Dose: 125 mls/hr Infusion: 10/25/16 02:34 Dose: 125 mls/hr Admin: 10/24/16 18:34 Dose: 125 mls/hr Cefoxitin Sodium 1 gm/ Premix 50 mls @ 100 mls/hr IV Q8H [facility] Stop: 10/25/16 12:29 Last Admin: 10/25/16 03:24 Dose: 100 mls/hr Infusion: 10/24/16 20:31 Dose: 100 mls/hr Admin: 10/24/16 20:01 Dose: 100 mls/hr Metoclopramide HCl (Reglan) 10 mg IV Q6H [facility] Last Admin: 10/25/16 07:30 Dose: 10 mg Admin: 10/25/16 00:48 Dose: 10 mg Admin: 10/24/16 18:34 Dose: 10 mg Admin: 10/24/16 14:28 Dose: 10 mg Morphine Sulfate (Morphine) 1 - 2 mg IVPUSH Q1H PRN PRN Reason: Pain Last Admin: 10/24/16 08:41 Dose: 1 mg Morphine Sulfate (Morphine) 0 mg IVPUSH Q1H PRN PRN Reason: Pain (severe 7-10) Ondansetron HCl (Zofran) 4 mg IVPUSH Q6H PRN PRN Reason: Nausea/Vomiting Last Admin: 10/24/16 19:55 Dose: 4 mg - Assessment Assessment (Free Text/Narrative):: Stable post-op course. Wants to go home. - Plan Plan (Free Text/Narrative):: Discharge today. [place] 5/325--10 tabs Clinid 10 days
[2016-10-25 12:15] VITALS: BP 131/84
== END 2016-10-25 11:50 | disposition home or self-care (01) ==
LOC: MW.ED 23:16 → MW.ICU 10-24 01:41 → MW.MS 10-24 14:25
PROVIDERS: ADMIT Surgery; ATTEND Surgery
PROC: 0DTJ4ZZ Resection of Appendix, Percutaneous Endoscopic Approach (ICD-10-PCS; principal; 2016-10-23)
DX: K35.80 Unspecified acute appendicitis (principal); F41.9 Anxiety disorder, unspecified; F32.9 Major depressive disorder, single episode, unspecified; Z90.89 Acquired absence of other organs; Z79.899 Other long term (current) drug therapy
CPT/HCPCS: 36415; 44970; 74177; 80053; 83690; 85025; 96361; 96365; 96375; 96376; 99285; A9270; G0378; J0694; J1100; J1170; J1885; J2250; J2270; J2405; J2765; J3010; J7040; J7120; Q9967; 00865; 88304; J0690; J2704

== ENCOUNTER 2020-01-18 19:00 | Emergency (ER) | payer OTHER ==
[2020-01-18] MEDS ORDERED: Sodium Chloride 0.9% 2.5 ML Syringe FLUSH PRN (19:12)
[2020-01-18] MEDS ORDERED: Sodium Chloride 0.9% 10 ML Syringe FLUSH PRN (19:12)
[2020-01-18] MEDS ORDERED: Sodium Chloride 0.9% 1,000 ML IV ONE (19:12)
[2020-01-18] MEDS: Aspirin 81 MG Tab.Chew PO ONE ×2 (19:25→19:37)
--- NOTE | 2020-01-18 19:38 | EDM.PDOC ---
ED HPI GENERAL MEDICAL PROBLEM - General Chief Complaint: Chest Pain Stated Complaint: TIGHTNESS IN CHEST Time Seen by Provider: 01/18/20 19:14 - History of Present Illness INITIAL COMMENTS - FREE TEXT/NARRATIVE: HISTORY AND PHYSICAL: History of present illness: This is a 34-year-old healthy gentleman with no history significant for hypertension, diabetes, hypercholesterolemia, family history of CAD, tobacco use, cocaine/stimulant use, inactivity, who presents ER today secondary to midepigastric and diffuse chest discomfort that started last night. Patient reports throughout the course of the day today at work while he was sitting he was experiencing episodes of abdominal and chest pain. Patient denies any recent fevers, shakes, chills, vomiting, diarrhea, dysuria, frequency, urgency, melena, bright red blood per rectum. Patient reports that in the past he has had a couple episodes of flecks of blood in his stool and is currently scheduled for a colonoscopy in [place] on . Patient reports that the pain is not exacerbated or improved with either rest or exertion. Patient reports he had no pain radiating to his arms jaw or back, patient has no diaphoresis, patient reports he did feel slightly nauseous and short of breath during these episodes. Patient reports he feels that his symptoms are secondary to anxiety over the blood in his stool and the upcoming colonoscopy. Patient reports that his p hysician has requested that he refrain from NSAIDs/aspirin prior to the upcoming procedure. Review of systems: As per history of present illness and below otherwise all systems reviewed and negative. Past medical history: As per history of present illness and as reviewed below otherwise noncontributory. Surgical history: As per history of present illness and as reviewed below otherwise nonco ntributory. Social history: No reported history of drug or alcohol abuse. Family history: As per history of present illness and as reviewed below otherwise noncontributory. Physical exam: Constitutional: Patient is oriented to person, place, and time. Appears well- developed and well-nourished. No distress. HEENT: Moist mucous membranes Head: Normocephalic and atraumatic Eyes: Right eye exhibits no discharge. Left eye exhibits no discharge. No scleral icterus Neck: Normal range of motion. No tracheal deviation present. Cardiovascular: Normal rate and regular rhythm. Nonreproducible tenderness to palpation to his anterior chest wall but patient does have some mild tenderness to palpation midepigastric region. Pulmonary: Effort normal, no respiratory distress. Abd: Soft, nondistended, no rebound/guarding, no psoas or obturator signs, no tenderness at Mcberney's point, no Toro's sign. Pt does not present with an exam that would be consistent with an acute surgical abdomen at this time Musculoskeletal: Normal range of motion Neurologic: Alert and oriented to person, place and time. Skin: [place], warm and dry. Patient with hive-like rash to his anterior chest wall that itches. Patient did not realize it prior to arrival. Psychiatric: Normal mood and affect. Behavior is normal. Judgment and thought content normal. Nursing note and vital signs have been reviewed Diagnostics: EKG: Normal sinus rhythm with occasional PVCs heart rate of [address]-T wave abnormalities Normal axis No evidence of ST elevation [place] As interpreted by ER physician: [facility] EKG #2: Normal sinus rhythm heart rate of [address]-T wave abnormalities Normal axis No evidence of ST elevation [place] As interpreted by ER physician: [facility] Chest Xray: Normal cardiac silhouette No infiltrates or effusions identified. No PTX No evidence of acute bony fracture. As interpreted by ER MD: [employer]: Patient given GI cocktail in the ED with near complete resolution of his symptoms. Patient given Benadryl 25 mg with resolution of anterior chest wall rash. Assessment and plan: This is a 34-year-old gentleman with no significant cardiac risk factors who presents the ER today complaining of atypical chest and abdominal discomfort. Patient's ER work-up is been unremarkable. Patient had a troponin level upon arrival as well as a 2-hour troponin level that are n egative. Patient's EKG did reveal PVCs however his repeat EKG at the 2-hour bryn does not reveal any further EKGs, watching his monitor strip for approximately 20 minutes in the ED revealed no further PVCs as well. Patient's QT interval is normal on his first and second EKG, I believe the initial EKG interpretation was read as an prolonged QT interval secondary to artifact. Definitive disposition and diagnosis as appropriate pending reevaluation and review of above. I reviewed all the results with the patient. I have discussed with him the limitations of an ER evaluation for chest pain and have offered admission to the patient. Patient reports that currently he feels well and does not wish to be admitted to the hospital. I have recommended the patient follow-up with his family doctor in 1 to 2 days to be reevaluated and referred to cardiology for further evaluation and have recommended that he return to the ER immediately if he has any further concerns or any further chest pain. Patient symptoms did improve with the GI cocktail so in the interim I have recommended that the patient try Tums after meals in order to prevent further discomfort. Reassessment at the time of disposition demonstrates that the patient is in no acute distress. The patient has remained stable throughout the entire ED visit and is without objective evidence for acute process requiring urgent inter vention or hospitalization. The patient is stable for discharge, counseling is provided as documented above, discussed symptomatic treatment and specific conditions for return. I have spoken with the patient/caregive and discussed todays findings, in addition to providing specific details for the plan of care. Questions are answered and there is agreement with the plan. - Related Data Allergies Allergy/AdvReac Type Severity Reaction Status Date / Time No Known Allergies Allergy Verified 01/18/20 19:11 Home Meds: Home Meds . [No Known Home Meds] 01/18/20 [History] Past Medical History HEENT History: Reports: None Cardiovascular History: Reports: None Respiratory History: Reports: None Gastrointestinal History: Reports: None Other Gastrointestinal History: recent gi bleeds Genitourinary History: Reports: None Musculoskeletal History: Reports: None Neurological History: Reports: None Psychiatric History: Reports: Anxiety, Depression Endocrine/Metabolic History: Reports: None Hematologic History: Reports: None Oncologic (Cancer) History: Reports: None Dermatologic History: Reports: None - Infectious Disease History Infectious Disease History: Reports: Chicken Pox - Past Surgical History HEENT Surgical History: Reports: Naso-Sinus Surgery, Tonsillectomy GI Surgical History: Reports: Appendectomy Social & Family History - Family History Family Medical History: Noncontributory - Caffeine Use Caffeine Use: Reports: None - Recreational Drug Use Other Recreational Drug Type: CBD oil ED ROS GENERAL - Review of Systems Review Of Systems: Comprehensive ROS is negative, except as noted in HPI. ED EXAM, GENERAL - Physical Exam Exam: See Below Course - Vital Signs Last Recorded V/S: Last Vital Signs Temp 97.8 F 01/18/20 19:08 Pulse 61 01/18/20 21:37 Resp 18 01/18/20 21:37 BP 133/91 H 01/18/20 21:37 Pulse Ox 98 01/18/20 21:37 - Orders/Labs/Meds Orders: Active Orders 24 hr Category Date Time Status Cardiac Monitoring [RC] . DIRECTED Care 01/18/20 19:12 Active EKG 12 Lead [EKG Documentation Completion] [RC] STAT Care 01/18/20 20:45 Active EKG 12 Lead [EKG Documentation Completion] [RC] STAT Care 01/18/20 21:10 Active Pulse Oximetry [RC] ASDIRECTED Care 01/18/20 19:12 Active Sodium Chloride 0.9% [Saline Flush] Med 01/18/20 19:12 Active 10 ml FLUSH ASDIRECTED PRN Sodium Chloride 0.9% [Saline Flush] Med 01/18/20 19:12 Active 2.5 ml FLUSH ASDIRECTED PRN Saline Lock Insert [OM.PC] Stat Oth 01/18/20 19:12 Ordered Medication Orders Sodium Chloride (Saline Flush) 10 ml FLUSH ASDIRECTED PRN PRN Reason: Keep Vein Open Sodium Chloride (Saline Flush) 2.5 ml FLUSH ASDIRECTED PRN PRN Reason: Keep Vein Open Labs: Laboratory Tests 01/18/20 01/18/20 01/18/20 Range/Units 19:20 19:20 19:20 WBC 10.28 (4.0-11.0) K/uL RBC 5.26 (4.50-5.90) M/uL Hgb 15.2 (13.0-17.0) g/dL Hct 44.7 (38.0-50.0) % MCV 85.0 (80.0-98.0) fL MCH 28.9 (27.0-32.0) pg MCHC 34.0 (31.0-37.0) g/dL RDW Std Deviation 40.6 (28.0-62.0) fl RDW Coeff of Gisele 13 (11.0-15.0) % Plt Count 313 (150-400) K/uL MPV 9.90 (7.40-12.00) fL Neut % (Auto) 61.1 (48.0-80.0) % Lymph % (Auto) 31.2 (16.0-40.0) % Arthur % (Auto) 6.8 (0.0-15.0) % Eos % (Auto) 0.6 (0.0-7.0) % Baso % (Auto) 0.3 (0.0-1.5) % Neut # (Auto) 6.3 H (1.4-5.7) K/uL Lymph # (Auto) 3.2 H (0.6-2.4) K/uL Arthur # (Auto) 0.7 (0.0-0.8) K/uL Eos # (Auto) 0.1 (0.0-0.7) K/uL Baso # (Auto) 0.0 (0.0-0.1) K/uL Nucleated RBC % 0.0 /100WBC Nucleated RBCs # 0 K/uL D-Dimer, Quantitative < 0.19 (0.0-0.50) mg/L FEU Sodium 140 (136-148) mmol/L Potassium 3.8 (3.5-5.1) mmol/L Chloride 102 (98-107) mmol/L Carbon Dioxide 26.4 (21.0-32.0) mmol/L BUN 9 (7.0-18.0) mg/dL Creatinine 1.1 (0.8-1.3) mg/dL Est Cr Clr Drug Dosing 113.98 mL/min Estimated GFR (MDRD) > 60.0 ml/min Glucose 90 (74-106) mg/dL Calcium 9.7 (8.5-10.1) mg/dL Total Bilirubin 1.5 H (0.2-1.0) mg/dL AST 17 (15-37) IU/L ALT 26 (14-63) IU/L Alkaline Phosphatase 103 (46-116) U/L Troponin I < 0.050 (0.000-0.056) ng/mL Total Protein 7.9 (6.4-8.2) g/dL Albumin 4.6 (3.4-5.0) g/dL Globulin 3.3 (2.6-4.0) g/dL Albumin/Globulin Ratio 1.4 (0.9-1.6) 01/18/20 Range/Units 21:03 WBC (4.0-11.0) K/uL RBC (4.50-5.90) M/uL Hgb (13.0-17.0) g/dL Hct (38.0-50.0) % MCV (80.0-98.0) fL MCH (27.0-32.0) pg MCHC (31.0-37.0) g/dL RDW Std Deviation (28.0-62.0) fl RDW Coeff of Gisele (11.0-15.0) % Plt Count (150-400) K/uL MPV (7.40-12.00) fL Neut % (Auto) (48.0-80.0) % Lymph % (Auto) (16.0-40.0) % Arthur % (Auto) (0.0-15.0) % Eos % (Auto) (0.0-7.0) % Baso % (Auto) (0.0-1.5) % Neut # (Auto) (1.4-5.7) K/uL Lymph # (Auto) (0.6-2.4) K/uL Arthur # (Auto) (0.0-0.8) K/uL Eos # (Auto) (0.0-0.7) K/uL Baso # (Auto) (0.0-0.1) K/uL Nucleated RBC % /100WBC Nucleated RBCs # K/uL D-Dimer, Quantitative (0.0-0.50) mg/L FEU Sodium (136-148) mmol/L Potassium (3.5-5.1) mmol/L Chloride (98-107) mmol/L Carbon Dioxide (21.0-32.0) mmol/L BUN (7.0-18.0) mg/dL Creatinine (0.8-1.3) mg/dL Est Cr Clr Drug Dosing mL/min Estimated GFR (MDRD) ml/min Glucose (74-106) mg/dL Calcium (8.5-10.1) mg/dL Total Bilirubin (0.2-1.0) mg/dL AST (15-37) IU/L ALT (14-63) IU/L Alkaline Phosphatase (46-116) U/L Troponin I < 0.050 (0.000-0.056) ng/mL Total Protein (6.4-8.2) g/dL Albumin (3.4-5.0) g/dL Globulin (2.6-4.0) g/dL Albumin/Globulin Ratio (0.9-1.6) Meds: Medications Generic Name Dose Route Start Last Admin Trade Name Christoph PRN Reason Stop Dose Admin Sodium Chloride 10 ml 01/18/20 19:12 Saline Flush FLUSH ASDIRECTED PRN Keep Vein Open Sodium Chloride 2.5 ml 01/18/20 19:12 Saline Flush FLUSH ASDIRECTED PRN Keep Vein Open Discontinued Medications Generic Name Dose Route Start Last Admin Trade Name Armaniq PRN Reason Stop Dose Admin Aspirin 324 mg 01/18/20 19:12 01/18/20 19:37 Aspirin PO 01/18/20 19:13 Not Given ONETIME ONE Al Hydroxide/Mg Hydroxide 15 0 ml 01/18/20 21:06 01/18/20 21:28 ml/ Lidocaine HCl 5 ml PO 01/18/20 21:07 1 each ONETIME ONE Administration Diphenhydramine HCl 25 mg 01/18/20 19:42 01/18/20 20:11 Benadryl IVPUSH 01/18/20 19:43 25 mg ONETIME ONE Administration Sodium Chloride 1,000 mls @ 999 mls/hr 01/18/20 19:12 01/18/20 19:24 Normal Saline IV 01/18/20 20:12 999 mls/hr .Bolus ONE Administration Departure - Departure Time of Disposition: 21:46 Disposition: Home, Self-Care 01 Condition: Good Clinical Impression: Acute nonspecific chest pain with low risk of coronary artery disease, Abdominal pain, Skin rash - Discharge Information Instructions: Hives, Nonspecific Chest Pain, Adult, Abdominal Pain, Adult, [id number] Referrals: Ivan Wolf MD [Primary Care Provider] - Forms: ED Department Discharge Additional Instructions: Please make an appointment to see your family doctor in 1 to 2 days. Your ER work-up did not reveal an acute cause for your symptoms today. Please return to the ED if your pain returns or if you should change your mind and would like to be observed in the hospital. The following information is given to patients seen in the emergency department who are being discharged to home. This information is to outline your options for follow-up care. We provide all patients seen in our emergency department with a follow-up referral. The need for follow-up, as well as the timing and circumstances, are variable depending upon the specifics of your emergency department visit. If you don't have a primary care physician on staff, we will provide you with a referral. We always advise you to contact your personal physician following an emergency department visit to inform them of the circumstance of the visit and for follow-up with them and/or the need for any referrals to a consulting specialist. The emergency department will also refer you to a specialist when appropriate. This referral assures that you have the opportunity for follow-up care with a specialist. All of these measure are taken in an effort to provide you with optimal care, which includes your follow-up. Under all circumstances we always encourage you to contact your private physician who remains a resource for coordinating your care. When calling for follow-up care, please make the office aware that this follow-up is from your recent emergency room visit. If for any reason you are refused follow-up, please contact the [facility] Emergency Department at and asked to speak to the emergency department charge nurse. Sepsis Event Note (ED) - Evaluation Sepsis Screening Result: No Definite Risk - Focused Exam Vital Signs: Vital Signs Temp Pulse Resp BP Pulse Ox 01/18/20 21:37 61 18 133/91 H 98 01/18/20 20:10 78 01/18/20 19:38 96 18 148/99 H 98 01/18/20 19:08 97.8 F 83 18 143/103 H 99 - My Orders Last 24 Hours: My Active Orders 01/18/20 19:12 Cardiac Monitoring [RC] . DIRECTED Pulse Oximetry [RC] ASDIRECTED Sodium Chloride 0.9% [Saline Flush] 10 ml FLUSH ASDIRECTED PRN Sodium Chloride 0.9% [Saline Flush] 2.5 ml FLUSH ASDIRECTED PRN Saline Lock Insert [OM.PC] Stat 01/18/20 20:45 EKG 12 Lead [EKG Documentation Completion] [RC] STAT 01/18/20 21:10 EKG 12 Lead [EKG Documentation Completion] [RC] STAT - Assessment/Plan Last 24 Hours: My Active Orders 01/18/20 19:12 Cardiac Monitoring [RC] . DIRECTED Pulse Oximetry [RC] ASDIRECTED Sodium Chloride 0.9% [Saline Flush] 10 ml FLUSH ASDIRECTED PRN Sodium Chloride 0.9% [Saline Flush] 2.5 ml FLUSH ASDIRECTED PRN Saline Lock Insert [OM.PC] Stat 01/18/20 20:45 EKG 12 Lead [EKG Documentation Completion] [RC] STAT 01/18/20 21:10 EKG 12 Lead [EKG Documentation Completion] [RC] STAT
[2020-01-18 19:42] LABS: BLOOD UREA NITROGEN,BUN 9 mg/dL (7.0-18.0); CARBON DIOXIDE,CO2 26.4 mmol/L (21.0-32.0); CHLORIDE,CL 102 mmol/L (98-107); GLUCOSE RANDOM 90 mg/dL (74-106); POTASSIUM,K 3.8 mmol/L (3.5-5.1); SODIUM,NA 140 mmol/L (136-148)
[2020-01-18] MEDS ORDERED: diphenhydrAMINE 50 MG/ML SDV IVPUSH ONE (19:42)
--- NOTE | 2020-01-18 20:17 | CR ---
INDICATION: Chest pain. TECHNIQUE: Frontal radiograph of the chest. COMPARISON: None FINDINGS: Cardiovascular and mediastinum: Heart size is normal. Pulmonary vasculature is normal. Mediastinum is within normal limits. Lungs and pleural spaces: Lungs are clear. No pleural effusion. No pneumothorax. Bones and soft tissues: No acute findings. IMPRESSION: No acute pulmonary process. Dictated by Ivan Rubalcava MD @ 01/18/2020 8:15:50 PM Dictated by: Ivan Rubalcava MD @ 01/18/2020 20:15:59 (Electronically Signed)
[2020-01-18] MEDS ORDERED: Alum Hydrox/Mag Hydrox/Simeth 15 ML, Lidocaine 2% 5 ML PO ONE ×2 (21:06)
[2020-01-19 00:04] VITALS: BP 130/90; PULSE 64
== END 2020-01-18 22:00 | disposition home or self-care (01) ==
LOC: MW.ED 19:00
DX: R07.9 Chest pain, unspecified (principal); R21 Rash and other nonspecific skin eruption; R10.9 Unspecified abdominal pain; Z90.49 Acquired absence of other specified parts of digestive tract
CPT/HCPCS: 36415; 71045; 80053; 84484; 85025; 85379; 93005; 96361; 96374; 99285; A9270; J1200; J7030

== ENCOUNTER 2021-09-20 01:11 | Emergency (ER) | payer BC, OTHER ==
[2021-09-20] MEDS ORDERED: Ondansetron 4 MG/2 ML SDV IVPUSH ONE (01:27)
[2021-09-20] MEDS ORDERED: Sodium Chloride 0.9% 1,000 ML IV ONE (01:27)
[2021-09-20 01:47] LABS: BLOOD UREA NITROGEN,BUN 30 mg/dL (7.0-18.0); CARBON DIOXIDE,CO2 28.3 mmol/L (21.0-32.0); CHLORIDE,CL 101 mmol/L (98-107); GLUCOSE RANDOM 134 mg/dL (74-106); LIPASE 66 U/L (73-393); POTASSIUM,K 4.4 mmol/L (3.5-5.1); SODIUM,NA 138 mmol/L (136-148)
[2021-09-20 02:23] VITALS: BP 123/69; PULSE 71
== END 2021-09-20 02:22 | disposition home or self-care (01) ==
LOC: MW.ED 01:11
DX: T78.1XXA Other adverse food reactions, not elsewhere classified, initial encounter (principal); K52.9 Noninfective gastroenteritis and colitis, unspecified
CPT/HCPCS: 36415; 80053; 83690; 85025; 96374; 99284; J2405; J7030

== ENCOUNTER 2021-12-29 12:36 | Emergency (ER) | payer BC ==
[2021-12-29] MEDS: Ketorolac 30 MG/ML SDV IVPUSH ONE ×2 (13:22→13:26)
[2021-12-29] MEDS ORDERED: Ketorolac 30 MG/ML SDV IM STA (13:26)
[2021-12-29 13:56] LABS: CARBON DIOXIDE,CO2 28.3 mmol/L (21.0-32.0); POTASSIUM,K 3.9 mmol/L (3.5-5.1)
[2021-12-29 15:14] VITALS: BP 110/70; PULSE 66
== END 2021-12-29 15:13 | disposition home or self-care (01) ==
LOC: MW.ED 12:36
DX: M25.511 Pain in right shoulder (principal); M25.512 Pain in left shoulder; Z79.899 Other long term (current) drug therapy; Z90.49 Acquired absence of other specified parts of digestive tract
CPT/HCPCS: 36415; 80053; 83735; 85025; 96372; 99284; J1885

== ENCOUNTER 2022-06-26 18:38 | Emergency (ER) | payer OTHER, BC ==
[2022-06-26] MEDS ORDERED: Lidocaine 1% PF 2 ML SDV INJECT ONE (18:45)
[2022-06-26] MEDS ORDERED: Diphtheria,Pertussis(Acell),Tetanus Vaccine 0.5 ML Syringe IM ONE (18:45)
[2022-06-26 20:26] VITALS: BP 131/82; PULSE 67
== END 2022-06-26 20:25 | disposition home or self-care (01) ==
LOC: MW.ED 18:38
DX: S51.012A Laceration without foreign body of left elbow, initial encounter (principal); Z23 Encounter for immunization; V84.9XXA Unspecified occupant of special agricultural vehicle injured in nontraffic accident, initial encounter
CPT/HCPCS: 12001; 73080-26-LT; 73080-LT; 90471; 90715; 99283-25; J3490

== ENCOUNTER 2024-07-02 08:17 | Day surgery (SDC) | payer BC ==
[~2024-07-02 08:17] MED LIST: Albuterol 0.083% 2.5 MG/3 ML Neb Soln NEB PRN; Bupivacaine 0.5%/EPINEPHrine 1:200,000 30 ML SDV ONE; HYDROmorphone 1 MG/ML Syringe IVPUSH PRN; Metoclopramide 10 MG/2 ML SDV IVPUSH PRN; Morphine 2 MG/ML SYRINGE IVPUSH PRN; Naloxone 0.4 MG/ML SDV IVPUSH PRN; Ondansetron 4 MG/2 ML SDV IVPUSH PRN; Phenylephrine HCl In 0.9% NaCl 1 MG/10 ML Syringe IVPUSH PRN; ceFAZolin 2 GM in Sodium Chloride 0.9% 50 ML IV ONE; fentaNYL 50 MCG/ML SDV IVPUSH PRN
[2024-07-02] MEDS: Lactated Ringers 1,000 ML IV SCH (08:43)
[2024-07-02] MEDS ORDERED: fentaNYL 250 MCG/5 ML SDV ONE (10:32)
[2024-07-02] MEDS ORDERED: Ketamine HCL/NACL, ISO-OSM 50 MG/5 ML Syringe ONE (10:32)
[2024-07-02] MEDS ORDERED: propofoL 500 MG/50 ML 50 ML ONE ×3 (10:32→12:08)
[2024-07-02] MEDS ORDERED: Propofol 200 MG/20 ML SDV ONE (10:32)
[2024-07-02] MEDS ORDERED: ceFAZolin 2 GM Vial ONE (10:59)
[2024-07-02] MEDS ORDERED: fentaNYL 100 MCG/2 ML SDV ONE ×3 (11:25→11:59)
[2024-07-02] MEDS ORDERED: Ketorolac 30 MG/ML SDV ONE (11:35)
[2024-07-02] MEDS ORDERED: Dexamethasone 4 MG/ML 5 ML MDV ONE (11:35)
[2024-07-02] MEDS ORDERED: Ondansetron 4 MG/2 ML SDV ONE (11:35)
[2024-07-02] MEDS ORDERED: HYDROmorphone 1 MG/ML Syringe ONE ×2 (12:04→12:26)
[2024-07-02 14:50] VITALS: BP 132/80; PULSE 80
== END 2024-07-02 13:52 | disposition home or self-care (01) ==
LOC: MW.SDS 08:17
PROVIDERS: ATTEND Orthopaedic Surgery
DX: S83.242A Other tear of medial meniscus, current injury, left knee, initial encounter (principal); M24.19 Other articular cartilage disorders, other specified site; Z79.899 Other long term (current) drug therapy
CPT/HCPCS: 29881; J0131; J0690; J1100; J1171; J1885; J2405; J2704; J3010; J7120; 01400; J3490